=== PATIENT | female | born 1985 | race Caucasian/White ===

== ENCOUNTER 2021-04-22 18:51 | Emergency (ER) | payer OTHER ==
[2021-04-22 19:55] LABS: BASOPHIL 0.4 % (0-2); EOSINOPHIL 0.2 % (0-5); HCT 50.8 % (37.0-47.0); HGB 17.1 g/dl (12.5-16.0); LYMPHOCYTE 12.8 % (15-48); MCH 29.7 pg (25.0-31.0); MCHC 33.7 g/dL (32.0-36.0); MCV 88.2 fL (78.0-100.0); MONOCYTE 3.6 % (0-12); MPV 9.5 fL (6.0-9.5); NEUTROPHIL 82.3 % (41-80); NRBC 0; PLT 355 K/uL (150-400); RBC 5.76 M/uL (4.20-5.40); RDW 12.4 % (11.5-14.0); WBC 24.3 K/uL (4.0-10.5)
[2021-04-22 20:02] LABS: BILIRUBIN - TOTAL 0.4 mg/dL (0.2-1.0); BUN/CREAT RATIO (CALC) 15.5 RATIO; CREATININE 0.84 mg/dL (0.51-0.95); GLOBULIN (CALCULATION) 3.4 g/dL; POTASSIUM 3.8 mmol/L (3.5-5.1); TOTAL PROTEIN 7.4 g/dL (6.4-8.2)
[2021-04-22 20:12] LABS: BILIRUBIN 2+ mg/dL (NEGATIVE); BLOOD 3+ Ery/uL (NEGATIVE); CLARITY CLOUDY (CLEAR); COLOR BROWN (YELLOW); GLUCOSE (U) NORMAL (NORMAL); PROTEIN 2+ mg/dL (NEGATIVE); SPECIFIC GRAVITY > 1.030 (1.001-1.030)
[2021-04-22 20:13] LABS: LEUKOCYTES NEGATIVE Leu/uL (NEGATIVE); NITRITE POSITIVE (NEGATIVE)
[2021-04-22 20:14] LABS: BACTERIA 3+; URINARY RBC TNTC
[2021-04-22] MEDS ORDERED: BACTRIM DS TAB1 EACH PO (21:10)
[2021-04-22] MEDS ORDERED: FLOMAX0.4 MG PO (21:10)
[2021-04-22] MEDS ORDERED: NORCO 5-325 TA1 EACH PO (21:10)
[2021-04-22] MEDS ORDERED: ZOFRAN4 M1 PO (21:10)
== END 2021-04-22 22:47 | disposition home or self-care (01) ==
LOC: FER 18:51
PROVIDERS: Nurse Practitioner Family
DX: N13.6 Pyonephrosis (principal); F17.210 Nicotine dependence, cigarettes, uncomplicated
CPT/HCPCS: 36415; 80053; 81001; 85025; 87088; J0696; J1885; J2405; J7030

== ENCOUNTER 2021-04-23 21:31 | Emergency (ER) | payer OTHER ==
[~2021-04-23 21:31] MED LIST: BACTRIM DS TAB1 EACH PO; FLOMAX0.4 MG PO; NORCO 5-325 TA1 EACH PO; ZOFRAN4 M1 PO
[2021-04-23 23:21] LABS: BASOPHIL 0.6 % (0-2); EOSINOPHIL 0.1 % (0-5); HCT 47.9 % (37.0-47.0); LYMPHOCYTE 11.1 % (15-48); MCHC 33.4 g/dL (32.0-36.0); MCV 89.7 fL (78.0-100.0); MONOCYTE 5.3 % (0-12); MPV 9.7 fL (6.0-9.5); NEUTROPHIL 82.3 % (41-80); NRBC 0; PLT 298 K/uL (150-400); RBC 5.34 M/uL (4.20-5.40); RDW 12.5 % (11.5-14.0); WBC 16.3 K/uL (4.0-10.5)
[2021-04-23 23:31] LABS: BUN/CREAT RATIO (CALC) 10.8 RATIO; CREATININE 1.11 mg/dL (0.51-0.95); POTASSIUM 3.9 mmol/L (3.5-5.1)
[2021-04-23 23:49] LABS: BILIRUBIN NEGATIVE (NEGATIVE); BLOOD 3+ Ery/uL (NEGATIVE); CLARITY CLEAR (CLEAR); COLOR YELLOW (YELLOW); GLUCOSE (U) NORMAL (NORMAL); LEUKOCYTES NEGATIVE Leu/uL (NEGATIVE); NITRITE NEGATIVE (NEGATIVE); PROTEIN NEGATIVE (NEGATIVE); SPECIFIC GRAVITY >=1.030 (1.001-1.030); UROBILINOGEN 0.2 mg/dL (0.2-1.0)
[2021-04-23 23:57] LABS: URINARY WBC RARE
[2021-04-23 23:58] LABS: BACTERIA 1+; SQUAMOUS EPITHELIAL CELLS >50; URINARY RBC 20-50
== END 2021-04-24 05:20 | disposition other institution (70) ==
LOC: FER 21:31
PROVIDERS: Emergency Medicine Emergency Medical Services
DX: N20.2 Calculus of kidney with calculus of ureter (principal); E86.0 Dehydration; F17.210 Nicotine dependence, cigarettes, uncomplicated; Z90.710 Acquired absence of both cervix and uterus; Z79.899 Other long term (current) drug therapy
CPT/HCPCS: 36415; 74018; 80048; 81001; 85025; J1170; J1885; J2405; J2550; J7030